=== PATIENT | female | born 1975 | race African-American/Black ===

== ENCOUNTER 2017-07-19 19:48 | Inpatient (IN) | payer MEDICAID ==
[~2017-07-19] VITALS: Ht 167.6 cm; Wt 75.8 kg
[2017-07-19] MEDS ORDERED: HALOPERIDOL 5 MG TABLET PO PRN (20:45)
[2017-07-19] MEDS ORDERED: LORazepam 2 MG TABLET PO PRN (20:45)
[2017-07-19] MEDS ORDERED: ZOLPIDEM TARTRATE 10 MG TABLET PO PRN (20:45)
[2017-07-19 20:56] VITALS: BP 123/88
[2017-07-20] VITALS: BP 129/86
[2017-07-20 06:15] VITALS: BP 127/70
[2017-07-20 08:23] VITALS: BP 110/65
[2017-07-20 08:38] LABS: BASOPHILS % (AUTO) 0.4 % (0.0-2.0); EOSINOPHILS % (AUTO) 3.4 % (1.0-6.0); HEMATOCRIT 40.5 % (36-46); LYMPHOCYTES % (AUTO) 33.7 % (22.0-44.0); MEAN CORPUSCULAR HEMOGLOBIN 23.8 pg (26.0-34.0); MEAN CORPUSCULAR HGB CONC 32.2 G/dL (31.0-37.0); MEAN CORPUSCULAR VOLUME 74 fL (80-100); MONOCYTES # (AUTO) 0.5 K/uL (0.1-1.0); MONOCYTES % (AUTO) 8.3 % (2.0-9.0); NEUTROPHILS # (AUTO) 3.1 K/uL (1.8-7.7); NEUTROPHILS % (AUTO) 54.2 % (40.0-70.0); PLATELET COUNT (AUTO) 218 K/uL (150-450); RED BLOOD CELL COUNT(AUTO) 5.46 MIL/uL (4.00-5.20); RED CELL DISTRIBUTION WIDTH 14.1 % (11.5-14.5)
[2017-07-20 08:48] LABS: ALANINE AMINOTRANSFERASE 32 U/L (12-78); ALBUMIN 3.4 g/dL (3.4-5.0); ALKALINE PHOSPHATASE 53 U/L (46-116); ANION GAP 7 mmol/L (8-16); BILIRUBIN,TOTAL 0.5 mg/dL (0.1-1.0); CALCIUM, TOTAL 8.5 mg/dL (8.8-10.5); CARBON DIOXIDE 27 mmol/L (22-29); CHLORIDE 108 mmol/L (98-107); CHOL/HDL RATIO 2.5 (3.9-5.7); CHOLESTEROL 119 mg/dL (131-200); CREATININE 1.15 mg/dL (0.60-1.30); FREE T4 (FREE THYROXINE) 0.98 ng/dL (0.76-1.46); GLOMERULAR FILTR. RATE CALC > 60 mL/min (>60); GLUCOSE,RANDOM 105 mg/dL (70-110); HCG,QUANTITATIVE < 1 mIU/mL (0-6); HDL CHOLESTEROL 48 mg/dL (40-60); LDL CHOL (CALC.) 64 mg/dL (0-130); POTASSIUM 4.1 mmol/L (3.5-5.1); SODIUM SERUM 142 mmol/L (136-145); THYROID STIMULATING HORMONE 0.84 uIU/mL (0.36-3.74); TOTAL PROTEIN, SERUM 7.3 g/dL (6.4-8.2); TRIGLYCERIDES 36 mg/dL (15-150); UREA NITROGEN, BLOOD 15 mg/dL (7-18)
[2017-07-20 08:58] LABS: ASPARTATE AMINOTRANSFERASE 22 U/L (15-37)
[2017-07-20] MEDS ORDERED: CloNIDine HCL 0.1 MG TABLET PO PRN (09:30)
[2017-07-20] MEDS ORDERED: ONDANSETRON HCL 4 MG TABLET PO PRN (09:30)
[2017-07-20] MEDS ORDERED: MAG HYDROX/AL HYDROX/SIMETH ES 30 ML SUSPENSION UDCUP PO PRN (09:30)
[2017-07-20] MEDS ORDERED: PETROLATUM,WHITE 71 GM JELLY TP PRN (09:30)
[2017-07-20] MEDS ORDERED: BACITRACIN 28.4 GM OINTMENT TP PRN (09:30)
[2017-07-20] MEDS ORDERED: BENZOCAINE/MENTHOL LOZENGE MM PRN (09:30)
[2017-07-20] MEDS ORDERED: ALBUTEROL SULFATE HFA 90 MCG/PUFF 8 GM INHALER IH PRN (09:30)
[2017-07-20] MEDS ORDERED: LOPERAMIDE HCL 2 MG CAPSULE PO PRN (09:30)
[2017-07-20] MEDS ORDERED: ACETAMINOPHEN 325 MG TABLET PO PRN (09:30)
[2017-07-20] MEDS ORDERED: MAGNESIUM HYDROXIDE SUSPENSION 30 ML UDCUP PO PRN (09:30)
[2017-07-20] MEDS ORDERED: IBUPROFEN 600 MG TABLET PO PRN (09:30)
[2017-07-20] MEDS: ARIPiprazole 10 MG TABLET PO SCH (14:40)
[2017-07-20 16:08] VITALS: BP 124/74
[2017-07-20] MEDS ORDERED: MIRTAZAPINE 15 MG TABLET PO SCH (21:00)
[2017-07-21 06:28] VITALS: BP 119/69
[2017-07-21 08:17] VITALS: BP 118/69
[2017-07-21] MEDS: ARIPiprazole 10 MG TABLET PO SCH (08:18)
[2017-07-21 16:00] VITALS: BP 135/88
[2017-07-21] MEDS: MIRTAZAPINE 30 MG TABLET PO SCH (20:20)
[2017-07-22 06:22] VITALS: BP 109/74
[2017-07-22 08:20] VITALS: BP 118/66
[2017-07-22] MEDS: ARIPiprazole 10 MG TABLET PO SCH (08:58)
[2017-07-22 16:22] VITALS: BP 119/68
[2017-07-22] MEDS: MIRTAZAPINE 30 MG TABLET PO SCH (21:01)
[2017-07-23 06:57] VITALS: BP 102/66
[2017-07-23] MEDS ORDERED: MIRT30 PO (08:19)
[2017-07-23] MEDS ORDERED: ARIP10TA8 PO (08:19)
[2017-07-23 08:41] VITALS: BP 108/69
[2017-07-23] MEDS: ARIPiprazole 10 MG TABLET PO SCH (08:59)
== END 2017-07-23 14:45 | disposition home or self-care (01) | DRG 750 ==
LOC: B3A 20:46 → B2S 07-23 13:48
PROVIDERS: ADMIT Psychiatry & Neurology Psychiatry; ATTEND Psychiatry & Neurology Psychiatry
DX: F25.0 Schizoaffective disorder, bipolar type (principal); F15.20 Other stimulant dependence, uncomplicated; R45.851 Suicidal ideations; F41.9 Anxiety disorder, unspecified; E83.51 Hypocalcemia; G47.00 Insomnia, unspecified; K59.00 Constipation, unspecified; Z79.899 Other long term (current) drug therapy; Z91.19 Patient's noncompliance with other medical treatment and regimen
CPT/HCPCS: 82306; 83036; 84439; 84443